=== PATIENT | female | born 1960 | race Two or more races ===

== ENCOUNTER 2022-03-12 16:23 | Emergency (ER) | payer BC, MEDICAID ==
[~2022-03-12] VITALS: Ht 152.4 cm; Wt 70.3 kg
--- NOTE | 2022-03-12 16:30 | NUR ---
SUSAN FROM [facility] S/P GLF YESTERDAY, DENIES PAIN HAS ABRASIONS ON FOREHEAD AND NOSE, NOT ON BLOOD THINNER. PLACED ON BED, AWAKE RESPONDING TO VERBAL STIMULI. BREATHING EVEN AND UNLABORED SATURATING AT 95%RA
--- NOTE | 2022-03-12 17:24 | NUR ---
BROTHER LIZ MCCLAIN [phone]
[2022-03-12 18:29] LABS: BASOPHILS % (AUTO) 0.2 % (0.0-2.0); EOSINOPHILS % (AUTO) 0.1 % (0.0-6.0); HEMATOCRIT 37 % (33-45); HEMOGLOBIN 12.3 g/dL (11.5-14.8); LYMPHOCYTES # (AUTO) 2.1 K/uL (0.8-4.8); LYMPHOCYTES % (AUTO) 17.2 % (20.0-44.0); MEAN CORPUSCULAR HGB CONC 33 g/dl (31.0-36.0); MEAN CORPUSCULAR VOLUME 90 fL (82-100); MONOCYTES # (AUTO) 2.4 K/uL (0.1-1.30); MONOCYTES % (AUTO) 19.9 % (2.0-12.0); NEUTROPHILS # (AUTO) 7.5 K/uL (1.8-8.9); NEUTROPHILS % (AUTO) 62.6 % (43.0-81.0); PLATELET COUNT (AUTO) 245 K/uL (150-450); RED BLOOD CELL COUNT(AUTO) 4.12 MIL/uL (4.0-5.2)
[2022-03-12 18:37] LABS: CREATININE 0.6 mg/dL (0.6-1.3)
[2022-03-12 18:46] LABS: POTASSIUM 2.3 mmol/L (3.5-5.1)
[2022-03-12] MEDS ORDERED: POTASSIUM CHLORIDE 20 MEQ TAB.PRT.SR PO ONE ×2 (19:28→19:30)
--- NOTE | 2022-03-12 20:34 | NUR ---
COVID SWAB COLLECTED AND SENT TO LAB
[2022-03-12 21:14] LABS: BAND % (MANUAL) 3 % (0.0-5.0); LYMPHOCYTES % (MANUAL) 26 % (16-48); MONOCYTES % (MANUAL) 12 % (0-11.0); NEUTROPHILS % (MANUAL) 59 (42-76)
--- NOTE | 2022-03-12 22:04 | NUR ---
S/W MEHDI TEL [phone] FAX [phone] ACCEPTED TO [facility] , SHE NEEDS MARIANGEL DING FAXED
--- NOTE | 2022-03-12 22:48 | NUR ---
[facility] :TO [facility] ACCEPTING DR LIZ ROOM 936-2 REPORT [phone]
--- NOTE | 2022-03-12 22:59 | NUR ---
[facility] ETA [phone]
--- NOTE | 2022-03-12 23:16 | NUR ---
REPORT GIVEN TO [facility] ROOM 936-2 FOR TRINA
--- NOTE | 2022-03-13 00:26 | NUR ---
PATIENT BEING TRANSFERRED VIA AMBULANCE IN STABLE CONDITION.
--- NOTE | 2022-03-13 00:26 | NUR ---
SHANNAN BOYKIN AT BEDSIDE FOR [facility].
[2022-03-13 00:27] VITALS: BP 112/60
== END 2022-03-13 00:46 | disposition short-term general hospital (02) ==
LOC: ER 16:45
DX: E87.6 Hypokalemia (principal); R51.9 Headache, unspecified; S00.81XA Abrasion of other part of head, initial encounter; W18.39XA Other fall on same level, initial encounter; Y92.099 Unspecified place in other non-institutional residence as the place of occurrence of the external cause; G40.909 Epilepsy, unspecified, not intractable, without status epilepticus; Z20.822 Contact with and (suspected) exposure to COVID-19
CPT/HCPCS: 99285; 70450; 87426; 93005; 85025; 80048; 36415; 87081; 85007; C9803

== ENCOUNTER 2023-08-16 21:36 | Emergency (ER) | payer MEDICAID ==
[~2023-08-16] VITALS: Ht 152.4 cm; Wt 72.6 kg
[2023-08-16 21:52] VITALS: TEMP 97.2
[2023-08-17 02:38] VITALS: BP 126/71; O2SAT 98
== END 2023-08-17 02:40 ==
LOC: ER 21:40
DX: S09.90XA Unspecified injury of head, initial encounter (principal); G20.A1 Parkinson's disease without dyskinesia, without mention of fluctuations; W18.30XA Fall on same level, unspecified, initial encounter; Y93.89 Activity, other specified; Y92.89 Other specified places as the place of occurrence of the external cause; Y99.8 Other external cause status
CPT/HCPCS: 70450-TC

== ENCOUNTER 2023-08-30 18:49 | Emergency (ER) | payer MEDICAID ==
[~2023-08-30] VITALS: Ht 162.6 cm; Wt 87.1 kg
[2023-08-30 19:16] VITALS: BP 127/77; TEMP 98; O2SAT 100
[2023-08-30 20:20] LABS: BASOPHILS # (AUTO) 0.1 K/uL (0.0-0.2); BASOPHILS % (AUTO) 0.8 % (0.0-2.0); EOSINOPHILS # (AUTO) 0.1 K/uL (0.0-0.7); EOSINOPHILS % (AUTO) 1.2 % (0.0-6.0); HEMATOCRIT 40 % (33-45); HEMOGLOBIN 13.4 g/dL (11.5-14.8); LYMPHOCYTES # (AUTO) 2.4 K/uL (0.8-4.8); LYMPHOCYTES % (AUTO) 22.7 % (20.0-44.0); MEAN CORPUSCULAR HEMOGLOBIN 30 PG (26.0-33.0); MEAN CORPUSCULAR HGB CONC 34 g/dl (31.0-36.0); MEAN CORPUSCULAR VOLUME 88 fL (82-100); MONOCYTES # (AUTO) 0.9 K/uL (0.1-1.30); MONOCYTES % (AUTO) 8.2 % (2.0-12.0); NEUTROPHILS % (AUTO) 67.1 % (43.0-81.0); PLATELET COUNT (AUTO) 289 K/uL (150-450); RED BLOOD CELL COUNT(AUTO) 4.47 MIL/uL (4.0-5.2); RED CELL DISTRIBUTION WIDTH 13.6 % (11.5-15.0); WHITE BLOOD COUNT (AUTO) 10.4 K/uL (4.3-11.0)
[2023-08-30 20:36] LABS: INR 0.98 (0.91-1.10); PARTIAL THROMBOPLASTIN TIME 22.5 SEC (24.3-34.3); PROTHROMBIN TIME 10.4 SECS (9.2-11.1)
[2023-08-30 20:40] LABS: ALANINE AMINOTRANSFERASE 29 U/L (12-78); ALBUMIN 3.1 g/dL (3.4-5.0); ALKALINE PHOSPHATASE 126 U/L (46-116); ASPARTATE AMINOTRANSFERASE 19 U/L (15-37); BILIRUBIN,DIRECT 0.1 mg/dL (0.0-0.2); BILIRUBIN,TOTAL 0.2 mg/dL (0.2-1.0); CALCIUM, SERUM 8.6 mg/dL (8.5-10.1); CARBON DIOXIDE 28 mmol/L (21-32); CHLORIDE 95 mmol/L (98-107); CREATININE 0.3 mg/dL (0.6-1.3); GLUCOSE 88 mg/dL (74-106); NT-PRO BNP 196 pg/mL (0-125); POTASSIUM 3.8 mmol/L (3.5-5.1); SODIUM SERUM 130 mmol/L (136-145); TOTAL PROTEIN, SERUM 7.7 g/dL (6.4-8.2); UREA NITROGEN, BLOOD 7 mg/dL (7-18)
== END 2023-08-30 22:50 ==
LOC: ER 18:52
DX: R60.9 Edema, unspecified (principal); M79.662 Pain in left lower leg; M79.661 Pain in right lower leg; M79.89 Other specified soft tissue disorders; G20.A1 Parkinson's disease without dyskinesia, without mention of fluctuations
CPT/HCPCS: 36415; 71045-TC; 80048-TC; 80076-TC; 83880; 84484-TC; 85025-TC; 85730-TC; 93970-TC

== ENCOUNTER 2024-03-20 15:56 | Emergency (ER) | payer MEDICAID ==
[~2024-03-20] VITALS: Ht 160 cm; Wt 78.0 kg
[2024-03-20] MEDS ORDERED: ACETAMINOPHEN ES 500 MG TABLET PO ONE (18:30)
[2024-03-20] MEDS ORDERED: ACET-2605 PO (18:49)
[2024-03-20] MEDS ORDERED: ACETAMINOPHEN ES 500 MG TABLET ONE (18:50)
[2024-03-20] MEDS: ACETAMINOPHEN ES 500 MG TABLET PO ONE (18:56)
[2024-03-20 20:49] VITALS: BP 145/60; TEMP 98.4; O2SAT 95
== END 2024-03-20 21:05 | disposition home or self-care (01) ==
LOC: ER 15:56
DX: M54.50 Low back pain, unspecified (principal); M25.551 Pain in right hip; M79.605 Pain in left leg; G20.A1 Parkinson's disease without dyskinesia, without mention of fluctuations; W18.39XA Other fall on same level, initial encounter; Y93.89 Activity, other specified; Y92.89 Other specified places as the place of occurrence of the external cause; Y99.8 Other external cause status
CPT/HCPCS: 72110-TC; 73502; 73552